=== PATIENT | male | born 1995 | race Caucasian/White ===

== ENCOUNTER 2017-04-07 16:00 | Emergency (ER) | payer OTHER ==
--- NOTE | 2017-04-07 16:43 | UC ---
Abdominal Pain Male HPI - HPI Summary HPI Summary: C/O fevers with 3 days of burning epigastric abdominal pain with eating. Decreased appetite. 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 Character: Burning - lasting 5 minutes. Aggravating Factor(s): Food Alleviating Factor(s): Nothing Associated Signs And Symptoms: Positive: Fever, Decreased Appetite, Nausea. Negative: Dizzy, Vomiting, Diarrhea - Allergies/Home Medications Allergies/Adverse Reactions: Allergies Allergy/AdvReac Type Severity Reaction Status Date / Time No Known Allergies Allergy Verified 04/07/17 16:35 Home Medications: Home Medications Acetaminophen [Acetaminophen Extra Stren] 500 mg PO Q6H PRN 04/07/17 [History Confirmed 04/07/17] Bismuth Subsalicylate [Pepto-Bismol Max Strength] 30 ml PO ONCE PRN 04/07/17 [ History Confirmed 04/07/17] PMH/Surg Hx/FS Hx/Imm Hx Previously Healthy: Yes - Surgical History Surgical History: None - Family History Known Family History: Positive: Cardiac Disease, Hypertension, Diabetes - Social History Occupation: Student Lives: Alone Alcohol Use: Weekly Substance Use Type: Marijuana Substance Use Comment - Amount & Last Used: 4-5 X PER MO Smoking Status (MU): Never Smoked Tobacco Have You Smoked in the Last Year: No Review of Systems Gastrointestinal: Abdominal Pain Is Patient Immunocompromised?: No All Other Systems Reviewed And Are Negative: Yes Physical Exam Triage Information Reviewed: Yes Appearance: No Pain Distress, Well-Nourished, Ill-Appearing - mild Vital Signs: Initial Vital Signs Temp 100.4 F 04/07/17 16:24 Pulse 99 04/07/17 16:24 Resp 20 04/07/17 16:24 BP 139/55 04/07/17 16:24 Pulse Ox 98 04/07/17 16:24 Vital Signs Reviewed: Yes Eyes: Positive: Conjunctiva Clear ENT: Positive: Pharynx normal, TMs normal Neck exam: Normal Respiratory Exam: Normal Cardiovascular Exam: Normal Abdominal Exam: Normal Bowel Sounds: Positive: Present Musculoskeletal Exam: Normal Neurological Exam: Normal Psychological Exam: Normal Skin Exam: Normal Abd Pain Male Course/Dx - Differential Dx/Clinical Impression Differential Diagnosis/HQI/PQRI: Constipation, Gall Bladder Disease, Pancreatitis Provider Diagnoses: Epigastric abdominal pain Discharge - Discharge Plan Condition: Stable Disposition: HOME Prescriptions: Famotidine TAB* [Pepcid 20 MG TAB*] 20 mg PO BID #60 tab Patient Education Materials: Gastritis (ED), Helicobacter Pylori (ED), Famotidine (By mouth) Additional Instructions: Submit stool for H. pylori testing.
== END 2017-04-07 17:08 | disposition home or self-care (01) ==
LOC: UCCORT 16:00
DX: R10.13 Epigastric pain (principal); R50.9 Fever, unspecified; R11.0 Nausea; F12.90 Cannabis use, unspecified, uncomplicated
CPT/HCPCS: 87338; 99202; G0463